=== PATIENT | female | born 1955 | race Caucasian/White ===

== ENCOUNTER → 2024-05-01 09:24 | Outpatient (REF) | payer OTHER, SELFPAY | LOC: HWRAD 09:24 | PROVIDERS: ATTENDING PHYSICIAN Internal Medicine Critical Care Medicine; FAMILY PHYSICIAN Nurse Practitioner Family | DX: D86.9 Sarcoidosis, unspecified (principal) | CPT/HCPCS: 71250 ==

== ENCOUNTER 2024-05-06 06:30 | Day surgery (SDC) | payer OTHER, SELFPAY ==
[2024-05-06] VITALS (8 sets, daily range): BP systolic 93–146; BP diastolic 51–115; BMI 31.6
== END 2024-05-06 15:35 | disposition home or self-care (01) ==
LOC: GI 06:30
PROVIDERS: ATTENDING PHYSICIAN Internal Medicine Critical Care Medicine
DX: J98.4 Other disorders of lung (principal); R59.0 Localized enlarged lymph nodes
CPT/HCPCS: 31629; 31625; 31652; 31654; 88173; 88305; 94640

== ENCOUNTER → 2024-06-17 22:00 | Outpatient (REF) | payer OTHER, SELFPAY | LOC: DHSLP 22:00 | PROVIDERS: ATTENDING PHYSICIAN Internal Medicine Critical Care Medicine; FAMILY PHYSICIAN Nurse Practitioner Family | DX: G47.33 Obstructive sleep apnea (adult) (pediatric) (principal) | CPT/HCPCS: 95800 ==

== ENCOUNTER 2025-05-20 12:54 | Emergency (ER) | payer OTHER, SELFPAY ==
[2025-05-20 13:02] VITALS: BP 136/69
[2025-05-20 13:25] LABS: Hematocrit 38.5 % (37.0-47.0); Hemoglobin 12.7 g/dL (12.0-16.0); Mean Corp Hgb Conc. 33.0 g/dL (33.0-37.0); Mean Corpuscular Volume 92.5 fL (81.0-99.0); Nucleated Red Blood Cells % 0 %; Platelet Count 315 10^3/uL (130-400); Red Cell Dist. Width 12.3 % (11.5-14.5)
[2025-05-20 13:46] LABS: ALT (SGPT) 25 U/L (0-35); AST (SGOT) 30 U/L (14-36); Albumin 4.4 g/dl (3.5-5.0); Alkaline Phosphatase 84 U/L (38-126); Blood Urea Nitrogen 27 mg/dl (7-17); Calcium 9.7 mg/dl (8.4-10.2); Carbon Dioxide 30 mmol/L (22-30); Chloride 101 mmol/L (98-107); Glucose 115 mg/dl (70-99); Potassium 4.5 mmol/L (3.5-5.1); Sodium 136 mmol/L (135-145); Total Protein 7.1 g/dl (6.3-8.2); eGFR > 60.00
[2025-05-20 13:57] LABS: Troponin I < 0.012 ng/ml
[2025-05-20 15:53] VITALS: BMI 26.5
[2025-05-20 15:55] VITALS: BP 108/85
--- NOTE | 2025-05-20 15:59 | ED.GENMED ---
History of Present Illness
General
Chief Complaint: Heart Rate Problem
Source: patient and family (Daughter at bedside)
Exam Limitations: none
Time Seen by Provider: 05/20/25 15:41
Nursing documentation reviewed up to this point in time: agreed with
History of Present Illness
History of Present Illness:
69-year-old female with history of hypothyroid, GERD, bulbar onset ALS diagnosed 09/2024 after symptoms started 02/2024. They have set up Palliative care nurses 'just to cover all our bases as she declines.' Nurse today was listening to her heart and
noted is was 'irregular.' The patient is on Nudexta (contains Quinidine) and Riluzole for ALS. The Nudexta has been administered since September.
Pt denies any symptoms. Daughter at bedside wanted to be sure it was not A fib.
Past History
Past History
ED Past Medical History: Other (Bulbar ALS)
Social History
Tobacco: Non-smoker
Alcohol: None
Personal: Single
Living: alone
Review of Systems
Review of Systems
Allergies reviewed?: Yes
All Other Systems: ROS reviewed and negative except as documented in HPI and ROS
Respiratory: Denies trouble breathing
Cardiac: Denies chest pain or palpitations
ABD/GI: Denies abdominal pain
Phy Exam
Physical Exam
Physical Exam:
GENERAL: No acute distress. A&Ox3.
CONSTITUTIONAL: Afebrile.
EYES: clear, conjunctivae normal
ENMT: moist mucus membranes, Pharynx nl
RESPIRATORY: Regular respirations, nonlabored, lungs clear.
CARDIOVASCULAR: Regular rate and rhythm, no murmurs, no rubs.
GI: Soft, nontender, normal BS
MUSCULOSKELETAL: Moves with ease. Well perfused.
SKIN: Warm, dry, pink
PSYCH: Normal mood and affect. Well kept, interactive and appropriate
NEUROLOGIC: Awake, alert and oriented. ALS, unable to speak, using a typed to speaker joe on her phone and communicates well
Course
Orders/Labs/Results
Orders:
Orders
05/20/25 13:00
Electrocardiogram (*1) Urgent
Reason for Study: Shortness of Breath
05/20/25 13:01
EKG- Treatment ONCE
05/20/25 13:14
Complete Blood Count/With Diff Urgent
Comprehensive Metabolic Panel Urgent
Troponin I Urgent
05/20/25 16:00
EKG [Electrocardiogram (*1)] Urgent
Reason for Study: Bradycardia / Tachycardia
EKG- Treatment ONCE
Abnormal Lab Results
05/20/25
13:14
RBC 4.16 L 10^6/uL
(4.20-5.40)
Absolute Monos (auto) 0.7 H 10^3/uL
(0.1-0.6)
Lymphocytes % 15.7 L %
(20.5-51.1)
BUN 27 H mg/dl
(7-17)
Glucose 115 H mg/dl
(70-99)
05/20/25 13:14
05/20/25 13:14
Vital Signs
Initial and Last Documented VS:
Initial Vital Signs
Temp Pulse Resp BP Pulse Ox
98.4 F 117 16 136/69 95
05/20/25 13:02 05/20/25 13:02 05/20/25 13:02 05/20/25 13:02 05/20/25 13:02
Last Documented Vital Signs
Temp Pulse Resp BP Pulse Ox
98.4 F 73 19 126/72 97
05/20/25 13:02 05/20/25 16:15 05/20/25 16:15 05/20/25 16:00 05/20/25 16:15
MDM/Problems Addressed
Differential Diagnosis Includes:
- Premature atrial contractions (PACs)
- Atrial fibrillation
- Sinus tachycardia
- Medication side effects (especially related to Nudexta and Riluzole)
- Dehydration-related tachycardia
- Anxiety or stress-induced palpitations
- Other supraventricular arrhythmias
-Electrolyte imbalance
MDM/Problems Addressed:
69-year-old female with history of hypothyroid, GERD, bulbar onset ALS diagnosed 09/2024 after symptoms started 02/2024. They have set up Palliative care nurses 'just to cover all our bases as she declines.' Nurse today was listening to her heart and
noted is was 'irregular.' The patient is on Nudexta (contains Quinidine) and Riluzole for ALS. The Nudexta has been administered since September.
Pt denies any symptoms. Daughter at bedside wanted to be sure it was not A fib.
Initial EKG showed sinus tachycardia with a rate of 101. Second EKG showing normal sinus rhythm with a rate of 70.
Patient had no chest pain, no trouble breathing, no sense of palpitations, she states she did not 'even know anything was wrong.'
An initial electrocardiogram (ECG) showed sinus tachycardia, bedside monitor showing NSR HR 70 w PAC's. Normal Q-T interval
CMP: slightly dehydrated, with a Blood Urea Nitrogen (BUN) of 27 mg/dL. She has a PEG tube and daughter, who is a nurse, states she is not surprised and they will increase her fluid intake.
CBC normal
No need for any further workup. Patient and daughter are both comfortable going home.
Chronic conditions affecting care: Neurological disorder (ALS, unable to speak, using a typed to speaker joe on her phone and communicates well)
*Pulse Oximetry
SaO2: 97
Oxygen Mode of Delivery: Room air
Patient hypoxic: not evaluated
*Critical Care Note
Total Time (30-74mins, 75-104mins- exclusive of procedures): Not Applicable
ED Attending Note
-
Portions of this chart may have been created with voice recognition software.� Occasional wrong word or��sound alike� substitutions may have occurred due to the inherent limitations of voice recognition software.
Discharge Plan
Departure
Patient Disposition: Home (Routine Discharge)
Date of Disposition: 05/20/25
Time of Disposition: 16:14
Patient with high blood pressure during this ER visit?: No
Condition: Good
Discharge Problem:
PAC (premature atrial contraction), Irregular heart beats
Instructions: Overview of heart arrhythmias
Prescriptions:
No Action
cetirizine [Zyrtec] 10 mg Tablet
10 mg feeding tube DAILYPRN PRN (Reason: ALLERGIES)
meloxicam [Mobic] 15 mg Tablet
15 mg feeding tube DAILYPRN PRN (Reason: KNEE PAINS)
sennosides [senna] 8.8 mg/5 mL Syrup
5 ml feeding tube DAILYPRN PRN (Reason: CONSTIPATION)
levothyroxine [Synthroid] 75 mcg Tablet
75 mcg feeding tube DAILY
cyanocobalamin (vitamin B-12) 1,000 mcg/mL Solution
1,000 mcg IM .TWICE A WEEK
famotidine [Pepcid] 40 mg/5 mL (8 mg/mL) Suspension For Reconstitution
20 mg feeding tube HS
cholecalciferol (vitamin D3) [Vitamin D3] 125 mcg (5,000 unit) Tablet
125 mcg feeding tube DAILY
Nuedexta 20-10 mg Capsule
1 cap feeding tube Q12H
Teglutik 50 mg/10 mL Suspension
50 mg feeding tube BID
Activity Restrictions/Additional Instructions:
As we discussed, your blood work is mostly unremarkable save for mild dehydration, increase your fluid intake
Your EKG is sinus rhythm with PACs, nothing worrisome.
Interventions
Interventions:
*Risk Screen - Suicide Last Done: 05/20/25 13:02
*General Assessment Last Done: 05/20/25 13:02
*Neglect/Abuse Screening Last Done: 05/20/25 13:02
*ED- Fall Risk Assessment Last Done: 05/20/25 13:02
*ED COVID-19 Vaccine History Last Done: 05/20/25 13:02
*Nursing Disposition Last Done: 05/20/25 16:28
ED- Cardiac Assessment Last Done: 05/20/25 15:56
ED- Pulmonary Assessment Last Done: 05/20/25 15:56
Discharge Date and Time
Discharge Date/Time: 05/20/25 16:29
Print Language: IRISH
[2025-05-20 16:00] VITALS: BP 126/72
== END 2025-05-20 16:29 | disposition home or self-care (01) ==
LOC: EMR 12:54
PROVIDERS: Emergency Medicine; EMERGENCY PHYSICIAN Emergency Medicine; FAMILY PHYSICIAN Nurse Practitioner Family
DX: I49.1 Atrial premature depolarization (principal); E03.9 Hypothyroidism, unspecified; G12.21 Amyotrophic lateral sclerosis; E86.0 Dehydration; Z93.1 Gastrostomy status
CPT/HCPCS: 99284; 80053; 84484; 85025; 93005